=== PATIENT | female | born 1980 | race Caucasian/White ===

== ENCOUNTER → 2022-06-13 13:56 | Outpatient (BNVA) | payer BC, SELFPAY | PROVIDERS: Family Provider Obstetrics & Gynecology; PCP Obstetrics & Gynecology; Visit Provider Obstetrics & Gynecology | DX: Z34.90 Encounter for supervision of normal pregnancy, unspecified, unspecified trimester (principal) | CPT/HCPCS: 80307; 82950; 84315; 84443; 85025; 86592; 86762; 86803; 86850; 86900; 87077; 87086; 87184; 87340; 87491; 87591; 87624; 87661; 87806 ==

== ENCOUNTER 2022-09-06 12:11 | Outpatient (CLI) | payer BC, SELFPAY ==
[2022-09-06 14:13] LABS: Glucose Tolerance 1 Hour Gest 87 mg/dL
== END 2022-09-06 12:12 | disposition home or self-care (01) ==
PROVIDERS: PCP Registered Nurse; Visit Provider Obstetrics & Gynecology
DX: O09.899 Supervision of other high risk pregnancies, unspecified trimester (principal)
CPT/HCPCS: 36415; 82950; 84315

== ENCOUNTER 2022-10-17 16:08 | Outpatient (CLI) | payer BC, SELFPAY ==
[2022-10-17 16:31] LABS: Basophils # 0.1 10^3/uL (0.0-0.1); Basophils % 0.5 %; Eosinophils # 0.3 10^3/uL (0.0-0.8); Eosinophils % 2.1 %; Hematocrit 35.9 % (37.0-47.0); Hemoglobin 11.3 g/dL (11.5-15.3); Lymphocytes # 3.1 10^3/uL (0.8-4.8); Lymphocytes % 23.3 %; Mean Corpuscular HGB Conc 31.5 g/dL (30.0-36.0); Mean Corpuscular Hemoglobin 26.9 pg (28.0-34.0); Mean Corpuscular Volume 85.5 fl (81-99); Mean Platelet Volume 13.7 fL (7.4-10.4); Monocytes # 0.8 10^3/uL (0.2-0.9); Monocytes % 5.7 %; Neutrophils # 8.88 10^3/uL (1.8-7.7); Neutrophils % 67.4 %; Nucleated Red Blood Cells % 0 %; Platelet Count 184 10^3/cmm (130-400); Red Cell Distribution Width 14.3 % (12.1-15.1); White Blood Count 13.2 10^3/uL (4.0-10.0)
[2022-10-17 17:09] LABS: Slide Review Slide Review Perform
== END 2022-10-17 16:09 | disposition home or self-care (01) ==
PROVIDERS: PCP Registered Nurse; Visit Provider Obstetrics & Gynecology
DX: O09.899 Supervision of other high risk pregnancies, unspecified trimester (principal)
CPT/HCPCS: 36415; 84315; 85025

== ENCOUNTER → 2022-10-31 14:50 | Outpatient (BNVA) | payer BC, SELFPAY | PROVIDERS: PCP Registered Nurse; Visit Provider Obstetrics & Gynecology | DX: O09.899 Supervision of other high risk pregnancies, unspecified trimester (principal); Z3A.00 Weeks of gestation of pregnancy not specified | CPT/HCPCS: 84315; 87081 ==

== ENCOUNTER 2022-11-07 09:26 | Outpatient (CLI) | payer BC, SELFPAY ==
[2022-11-07] VITALS (9 sets, daily range): BP systolic 135–177; BP diastolic 64–89; PULSE 80–88; RESP 15; BMI 50.4
--- NOTE | 2022-11-07 09:38 | US_ITS ---
WS: [id number] LIMITED OBSTETRICAL ULTRASOUND HISTORY: GROWTH ULTRASOUND COMPARISON: 06/05/2022 and 07/10/2022 Presentation: Vertex. Cervix: Obscured by the head. Placenta: Anterior, no previa or abruption. Grade: 1 HEART: FHR of 144 BPM. measurements: BPD = 9.2 cm = 37w2d; 66 percentile HC = 32.9 cm = 37w3d; 29th percentile AC = 34.7 cm = 38w4d; 92nd percentile FL = 7.3 cm = 37w4d; 57th percentile KAYLI: 11.8 cm EFW: 3384 g; 85th %. AGA by ultrasound: 37w5d MATEO by ultrasound: 11/23/2022 Appropriate growth since the first trimester ultrasound. Abdominal circumference is at the 92nd perce ntile for age. US/ OB limited [id number] IMPRESSION: 1. Single intrauterine gestation of 37 weeks 5 days with an EDC of 11/23/2022. A ppropriate growth since the first trimester ultrasound. 2. Abdominal circumference is at the 92nd percentile for age. 3. Estimated weight at the 85th percentile. Fetus is trending toward lar ge for gestational age.
[2022-11-07 10:52] LABS: Basophils # 0.1 10^3/uL (0.0-0.1); Basophils % 0.6 %; Eosinophils # 0.2 10^3/uL (0.0-0.8); Eosinophils % 1.5 %; Hematocrit 34.4 % (37.0-47.0); Hemoglobin 10.7 g/dL (11.5-15.3); Lymphocytes # 2.3 10^3/uL (0.8-4.8); Lymphocytes % 18.2 %; Mean Corpuscular HGB Conc 31.1 g/dL (30.0-36.0); Mean Corpuscular Hemoglobin 26.2 pg (28.0-34.0); Mean Corpuscular Volume 84.1 fl (81-99); Mean Platelet Volume 13.7 fL (7.4-10.4); Monocytes # 0.6 10^3/uL (0.2-0.9); Monocytes % 4.6 %; Neutrophils # 9.42 10^3/uL (1.8-7.7); Neutrophils % 74.2 %; Nucleated Red Blood Cells % 0 %; Platelet Count 170 10^3/cmm (130-400); Red Blood Count 4.09 10^6/uL (4.1-5.3); White Blood Count 12.7 10^3/uL (4.0-10.0)
[2022-11-07 11:19] LABS: UPRO/UCREAT Ratio 0.08 mg/mg CR; Urine Creatinine 158 mg/dL (28-217); Urine Protein Random 12 mg/dL
[2022-11-07 11:21] LABS: Add Urine Culture? No; Add Urine Microscopic? YES; Bacteria Urine TRACE /hpf; Bilirubin Urine Neg (Negative); Blood Urine Neg (Negative); Glucose Urine UA Norm (Normal); Ketones Urine 1+ (Negative); Leukocyte Esterase Urine Trace (Negative); Mucus Urine 1+ /hpf; Nitrate Urine Negative (Negative); Protein Urine Neg (Negative); RBC Urine RARE /hpf (0-2); Specific Gravity, Urine 1.015 (1.005-1.030); Sperm Urine 1+ /hpf; Urine Appearance Clear (CLEAR); Urine Color Yellow (Yellow); Urobilinogen Urine Neg (Negative); WBC Urine 0-4 /hpf (0-5); pH Urine 7 (5-7)
[2022-11-07 11:28] LABS: Alanine Aminotransferase 14 U/L (0-33); Alkaline Phosphatase 110 U/L (35-105); Anion Gap 15.5 (5-19); Aspartate Amino Transferase 16 U/L (0-32); Blood Urea Nitrogen 8 mg/dL (6-20); Carbon Dioxide 22 mmol/L (22-29); Chloride 105 mmol/L (98-107); Globulin 3.6 g/dL (1.3-4.6); Glomerular Filtration Rate 109.6 mL/min (90-130); Glucose 136 mg/dL (65-115); Osmolality Calculated 288 mOsm/kg (285-295); Potassium 3.5 mmol/L (3.5-5.1); Sodium 139 mmol/L (136-145); Total Bilirubin 0.4 mg/dL (0.15-1.2); Total Protein 6.6 g/dL (6.6-8.7); Uric Acid 5.3 mg/dL (2.4-5.7)
== END 2022-11-07 11:35 | disposition home or self-care (01) ==
LOC: OPOB 09:36 → OBGYN 09:37
PROVIDERS: Absent Provider Obstetrics & Gynecology; PCP Registered Nurse; Visit Provider Obstetrics & Gynecology
DX: O26.899 Other specified pregnancy related conditions, unspecified trimester (principal); Z3A.00 Weeks of gestation of pregnancy not specified
CPT/HCPCS: 36415; 59025; 76815; 80053; 81001; 82570; 84156; 84550; 85025; 99211

== ENCOUNTER 2022-11-11 22:54 | Inpatient (IN) | payer BC, SELFPAY ==
[2022-11-11 22:56] VITALS: RESP 18
[2022-11-11 23:00] VITALS: BP 212/101; PULSE 73
[2022-11-11 23:11] VITALS: BP 176/88; PULSE 75
[2022-11-11 23:19] VITALS: RESP 18
[2022-11-11] MEDS: lactated ringers 1,000 ML 999 ML IV (23:25)
[2022-11-11 23:29] VITALS: BMI 39.8
[2022-11-11 23:33] VITALS: RESP 20
[2022-11-11 23:47] LABS: Add Urine Microscopic? NO; Charge for UA Resulting for Rev
[2022-11-11 23:57] VITALS: BP 168/92; PULSE 88
[2022-11-11 23:58] LABS: Alanine Aminotransferase 14 U/L (0-33); Albumin Level 3.2 g/dL (3.5-5.2); Alkaline Phosphatase 124 U/L (35-105); Anion Gap 17.9 (5-19); Aspartate Amino Transferase 16 U/L (0-32); Blood Urea Nitrogen 11 mg/dL (6-20); Calcium 9.5 mg/dL (8.5-10.5); Carbon Dioxide 19 mmol/L (22-29); Chloride 102 mmol/L (98-107); Globulin 3.8 g/dL (1.3-4.6); Glomerular Filtration Rate 109.6 mL/min (90-130); Glucose 107 mg/dL (65-115); Osmolality Calculated 280 mOsm/kg (285-295); Potassium 3.9 mmol/L (3.5-5.1); Sodium 135 mmol/L (136-145); Total Bilirubin 0.3 mg/dL (0.15-1.2); Uric Acid 4.6 mg/dL (2.4-5.7)
[2022-11-12] VITALS (29 sets, daily range): BP systolic 129–186; BP diastolic 72–90; PULSE 77–112; RESP 15–16; TEMP 36.4–36.8; O2SAT 95–98
[2022-11-12 00:01] LABS: Bilirubin Urine Neg (Negative); Blood Urine Neg (Negative); Glucose Urine UA Norm (Normal); Ketones Urine 1+ (Negative); Leukocyte Esterase Urine Negative (Negative); Nitrate Urine Negative (Negative); Protein Urine Neg (Negative); Specific Gravity, Urine 1.025 (1.005-1.030); Urine Appearance Clear (CLEAR); Urine Color Yellow (Yellow); Urobilinogen Urine Norm (Negative); pH Urine 6 (5-7)
[2022-11-12 00:10] LABS: Urine Creatinine 74 mg/dL (28-217); Urine Protein Random 7 mg/dL
[2022-11-12 00:11] LABS: Basophils # 0.1 10^3/uL (0.0-0.1); Basophils % 0.5 %; Eosinophils # 0.3 10^3/uL (0.0-0.8); Eosinophils % 1.5 %; Hematocrit 35.1 % (37.0-47.0); Lymphocytes # 3.5 10^3/uL (0.8-4.8); Lymphocytes % 20.8 %; Mean Corpuscular HGB Conc 31.3 g/dL (30.0-36.0); Mean Corpuscular Hemoglobin 25.9 pg (28.0-34.0); Mean Corpuscular Volume 82.8 fl (81-99); Mean Platelet Volume 14.4 fL (7.4-10.4); Neutrophils # 11.73 10^3/uL (1.8-7.7); Neutrophils % 70.2 %; Nucleated Red Blood Cells % 0 %; Platelet Count 205 10^3/cmm (130-400); Red Blood Count 4.24 10^6/uL (4.1-5.3); Red Cell Distribution Width 15.3 % (12.1-15.1); White Blood Count 16.7 10^3/uL (4.0-10.0)
[2022-11-12 00:12] LABS: UPRO/UCREAT Ratio 0.09 mg/mg CR
[2022-11-12] MEDS: oxytocin 30 UNIT/500 ML BAG 600 UNIT IV (00:19)
--- NOTE | 2022-11-12 00:37 | PM.OPHPUD ---
Labor & Delivery H&P Update Date of Procedure: November 12, 2022 Date H&P Performed: 10/31/22 H&P update information: I have reviewed H&P completed within last 30 days, I have examined patient prior to procedure and Changes to prior documentation as noted here (fully dialated) Admission Diagnosis:
--- NOTE | 2022-11-12 00:38 | PM.DELIVERY ---
Delivery Note: Date of delivery: November 12, 2022 Pre-delivery diagnoses: Term Post-delivery diagnoses: Term delivered Procedure: Spontaneous vaginal delivery Delivering Physician: Don Goodwin MD Estimated blood loss (mL): 300 Pre-Delivery Course: The patient is a 41yo at 37+6 weeks EGA who has been receiving care from [facility]. She has been experiencing painful uterine contractions for the past 4 hours. The contractions are occurring at 4 minute intervals with approximately 30 second duration. She continues to feel movement between the contractions. She denies vaginal bleeding or rupture of membranes. She had a rapid progression of labor from 1 cm dilation to 10 cm dilation in less than 1 hour. LMP: Unknown MATEO of 11/26/22 based on her 15 week sonogram CC: Onset of labor at term. HPI: Received appropriate care. Daily vitamins since two months prior to conception. labs have all been normal, including negative for HIV. She was found to negative for Group B Strep from screening at 36 weeks. She has gained approximately 10 lbs throughout the . was complicated by chronic hypertension during , morbid obesity. Glucose tolerance screening for gestational diabetes was negative. Delivery: The patient was noted to be complete and pushing, so was placed in the dorsal lithotomy position, prepped and draped in the usual sterile fashion for a vaginal delivery. Pt. Noted to have epidural anesthesia. At 0015 the patient delivered a viable term male weighing 3635 g with scores of 8 and 9 at one and five minutes, respectively. The vertex was delivered spontaneously over intact perineum. The patient was asked to push and the head delivered spontaneously in the EMILY position, over an intact perineum. A nuchal cord was checked and none noted. The anterior shoulder delivered easily and the posterior shoulder followed. The remainder of the infant was easily delivered and the oropharynx and nasopharynx was bulb suctioned. The infant was noted to have spontaneous cry and spontaneous movement of all four extremities. The cord was clamped x 2 and cut and noted to have 2 arteries and one vein. The was passed to the mother's abdomen where nursing personnel were in attendance. The placenta delivered intact spontaneously and the uterus was explored. 20 units of Pitocin was placed in the IV bag to firm the uterus. Examination of the cervix and vaginal vault did not reveal any lacerations. A vaginal pack was then placed. Examination of the perineum showed second-degree laceration. The laceration was repaired with 2-0 Vicryl in the normal fashion in a running non locking fashion to reapproximate the laceration in layers. The vaginal pack was then removed. The patient tolerated this procedure well, and recovered in L&D with her in their LDR room. All sponge and needle counts were correct. 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
--- NOTE | 2022-11-12 03:21 | PC.NURSE ---
Patient reported she was picking up baby out of the crib when this blood pressure was taking.
--- NOTE | 2022-11-12 05:30 | PC.NURSE ---
In other delivery at this time
[2022-11-12] MEDS: docusate sodium 100 mg Capsule PO ×2 (09:14→20:56)
[2022-11-12] MEDS: ibuprofen 800 mg tablet PO ×2 (09:14→20:56)
[2022-11-12 12:38] LABS: Hematocrit 33.1 % (37.0-47.0); Hemoglobin 10.5 g/dL (11.5-15.3); Mean Corpuscular HGB Conc 31.7 g/dL (30.0-36.0); Mean Corpuscular Hemoglobin 26.4 pg (28.0-34.0); Mean Corpuscular Volume 83.2 fl (81-99); Mean Platelet Volume 13.9 fL (7.4-10.4); Platelet Count 180 10^3/cmm (130-400); Red Blood Count 3.98 10^6/uL (4.1-5.3); Red Cell Distribution Width 15.4 % (12.1-15.1)
[2022-11-12] MEDS: benzocaine-menthol 78 gm Canister 1 SPRAY TOPICAL (21:01)
[2022-11-13 04:50] VITALS: BP 127/84; PULSE 82; RESP 16; TEMP 36.8
--- NOTE | 2022-11-13 08:09 | P.DS_ITS ---
Discharge Providers [employer] MACHINE [employer]ED[employer] Date of Admission: 11/11/22 22:54 Date of Discharge: 11/13/22 Attending Provider at Admission: Don Goodwin MD Attending Provider at Discharge: Don Goodwin MD Primary Care Provider: LISA Cardona Diagnoses at Discharge Discharge Diagnosis (1) Term delivered: Status: Acute (2) Chronic hypertension affecting : Status: Acute (3) AMA (advanced maternal age) multigravida 35+: Status: Acute (4) Morbid obesity with BMI of 45.0-49.9, adult: Status: Acute Reason for Visit Reason for Visit: CONTRACTIONS Hospital Course Hospital Course Mrs. Weber 41-year-old female with estimated gestational age at 37 weeks came to labor and delivery in active labor. Initially to be 1 cm and dilation 15 minutes later she was fully dilated and had a spontaneous vaginal delivery of a male infant without complications with a birthweight of 3635 g, Apgars 8/9. observation was uneventful, relating without difficulty, tolerating diet well. She is afebrile and hemodynamically stable day 1. She was counseled regarding pelvic rest for 6 weeks (no sex, no tampons, no vaginal douches). Return to the emergency room if any fever, increased bleeding or pain. Information Peripartum Data: Delivery Method: Vaginal Physical Exam Narrative: GA; alert and oriented x 3 HEENT: normal Breasts: engorged Nipples - skin intact Lungs; clear to auscultation Heart: regular rhythm, no murmurs. Abd: Appropriately tender. BS+. Uterine fundus below umbilicus. No Fundal Tenderness. Perineum: normal lochia. Extremities: no edema, no cyanosis, no tenderness. History History History 3 Term 1 1 Miscarriages/Ectopic 0 Living Children 2 Discharge Data Studies Completed and Pending Laboratory Results WBC 18.0 10^3/uL (4.0-10.0) H 11/12/22 12:30 RBC 3.98 10^6/uL (4.1-5.3) L 11/12/22 12:30 Hgb 10.5 g/dL (11.5-15.3) L 11/12/22 12:30 Hct 33.1 % (37.0-47.0) L 11/12/22 12:30 MCV 83.2 fl (81-99) 11/12/22 12:30 MCH 26.4 pg (28.0-34.0) L 11/12/22 12:30 MCHC 31.7 g/dL (30.0-36.0) 11/12/22 12:30 RDW 15.4 % (12.1-15.1) H 11/12/22 12:30 Plt Count 180 10^3/cmm (130-400) 11/12/22 12:30 MPV 13.9 fL (7.4-10.4) H 11/12/22 12:30 Neut % (Auto) 70.2 % 11/11/22 23:15 Lymph % (Auto) 20.8 % 11/11/22 23:15 [place] % (Auto) 6.0 % 11/11/22 23:15 Eos % (Auto) 1.5 % 11/11/22 23:15 Baso % (Auto) 0.5 % 11/11/22 23:15 Neut # (Auto) 11.73 10^3/uL (1.8-7.7) H 11/11/22 23:15 Lymph # (Auto) 3.5 10^3/uL (0.8-4.8) 11/11/22 23:15 [place] # (Auto) 1.0 10^3/uL (0.2-0.9) H 11/11/22 23:15 Eos # (Auto) 0.3 10^3/uL (0.0-0.8) 11/11/22 23:15 Baso # (Auto) 0.1 10^3/uL (0.0-0.1) 11/11/22 23:15 Nucleated RBC % (auto) 0 % 11/11/22 23:15 Nucleated RBCs # 0.0 /100WBC 11/11/22 23:15 Sodium 135 mmol/L (136-145) L 11/11/22 23:15 Potassium 3.9 mmol/L (3.5-5.1) 11/11/22 23:15 Chloride 102 mmol/L (98-107) 11/11/22 23:15 Carbon Dioxide 19 mmol/L (22-29) L 11/11/22 23:15 Anion Gap 17.9 (5-19) 11/11/22 23:15 BUN 11 mg/dL (6-20) 11/11/22 23:15 Creatinine 0.6 mg/dL (0.5-0.9) 11/11/22 23:15 GFR Calculation 109.6 mL/min (90-130) 11/11/22 23:15 Glucose 107 mg/dL (65-115) 11/11/22 23:15 Calculated Osmolality 280 mOsm/kg (285-295) L 11/11/22 23:15 Uric Acid 4.6 mg/dL (2.4-5.7) 11/11/22 23:15 Calcium 9.5 mg/dL (8.5-10.5) 11/11/22 23:15 Total Bilirubin 0.3 mg/dL (0.15-1.2) 11/11/22 23:15 AST 16 U/L (0-32) 11/11/22 23:15 ALT 14 U/L (0-33) 11/11/22 23:15 Alkaline Phosphatase 124 U/L (35-105) H 11/11/22 23:15 Total Protein 7.0 g/dL (6.6-8.7) 11/11/22 23:15 Albumin 3.2 g/dL (3.5-5.2) L 11/11/22 23:15 Globulin 3.8 g/dL (1.3-4.6) 11/11/22 23:15 Urine Color Yellow (Yellow) 11/11/22 23:15 Urine Appearance Clear (CLEAR) 11/11/22 23:15 Urine pH 6 (5-7) 11/11/22 23:15 Ur Specific [place] 1.025 (1.005-1.030) 11/11/22 23:15 Urine Protein Neg (Negative) 11/11/22 23:15 Urine Glucose (UA) Norm (Normal) 11/11/22 23:15 Urine Ketones 1+ (Negative) H 11/11/22 23:15 Urine Blood Neg (Negative) 11/11/22 23:15 Urine Nitrate Negative (Negative) 11/11/22 23:15 Urine Bilirubin Neg (Negative) 11/11/22 23:15 Urine Urobilinogen Norm mg/dL (Negative) 11/11/22 23:15 Ur Leukocyte Esterase Negative (Negative) 11/11/22 23:15 U Random Total Protein 7 mg/dL 11/11/22 23:15 Urine Creatinine 74 mg/dL (28-217) 11/11/22 23:15 Protein/Creatinin Ratio 0.09 mg/mg CR 11/11/22 23:15 Vitals Last Vital Signs Temp 98.2 F 11/13/22 04:50 Pulse 82 11/13/22 04:50 Resp 16 11/13/22 04:50 BP 127/84 11/13/22 04:50 Pulse Ox 95 11/12/22 16:00 O2 Del Method 11/13/22 04:50 Discharge Plan Discharge Patient Disposition: Home Condition: Stable Prescriptions: New acetaminophen 325 mg capsule 325 mg PO Q4H PRN (Reason: fever or pain) Qty: 60 0RF docusate sodium [Colace] 100 mg capsule 100 mg PO BID Qty: 60 0RF ibuprofen 800 mg tablet 800 mg PO TID PRN (Reason: pain) Qty: 60 0RF ferrous sulfate [Iron (ferrous sulfate)] 325 mg (65 mg iron) tablet 325 mg PO BID Qty: 60 0RF Continued aspirin 81 mg tablet,delayed release (DR/EC) 81 mg PO DAILY Discharge Orders: Discharge Order (Routine); Ordered 11/13/22 Ordered By: Don Goodwin Referrals: Don Goodwin MD [Physician] - 6 Weeks Discharge Diet: Advance as tolerated Discharge Activity: Limit activity as instructed Patient Instructions: Opioid Safety, Vaginal Delivery (GEN), Your [place]'s Appearance (GEN), Caring for Your Baby (GEN), Bleeding (GEN) Activity Restrictions/Additional Instructions: 1. Please call [facility] on next working day to make your post appointment in 6 weeks. 2. Please stay home until you come back to the clinic on first post-operative check up. 3. Please follow instructions on your medications CAREFULLY. 4. If you have abdominal incision, do not cover it unless dressing is necessary because of drainage. OK to shower, but avoid bath. Leave steri-strips until they fall off. If they are still on one week after surgery, you may remove them. 5. If you had vaginal surgery or vaginal repair, Dr. Goodwin may instruct you to take SITZ bath. 6. Yellow, blood tinged odorous vaginal discharge is usually normal after hysterectomy or vaginal surgeries. 7. No sexual intercourse, tampons, or douches until you are completely released from the post-operative care. 8. Avoid constipation by eating right and maybe using some Metamucil or Milk of Magnesia. 9. All prescription refills are given during the working hours. Please do no wait till it runs out. Call the clinic at [phone] before your medication runs out. The clinic will get in touch with your doctor to prescribe medications if necessary. 10. Please remain within 40 mile radius from our hospital because emergencies do happen now and then during the post-operative period. 11. If you have stairs at home, take one step at a time slowly and minimize the number of trips. It helps to stay in one floor for the next few days. No lifting except what you can lift by one hand until you are released from the post-operative care. 12. Driving is discouraged until you are well healed. It may be 3-4 weeks before you feel strong enough to drive. You should be able to turn and look through the rear window without pain and you should be able to push the brake pedal very hard without pain before you drive. No fast rules, but SAFETY should be your primary concern. DO NOT drive if you are on sedating medications such as narcotics. 13. Call the clinic (during working hours) to make urgent appointment or go to the Emergency room, if any of the following occurs: i. Vaginal bleeding becomes heavy, more than a period. ii. Incision becomes red and sore, or drains pus. iii. Your temperature is over 100.4 or you have chill. iv. IV site becomes red and swollen (a little ``knot?? is usually OK) v. Persistent nausea and vomiting vi. Persistent constipation or diarrhea vii. Rash or allergic reaction to medications. 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
[2022-11-13] MEDS: prenatal vitamin Capsule 1 CAP PO (09:44)
[2022-11-13] MEDS: ibuprofen 800 mg tablet PO (09:44)
[2022-11-13] MEDS: docusate sodium 100 mg Capsule PO (09:44)
[2022-11-13 10:00] VITALS: BP 141/86; PULSE 78; RESP 18; TEMP 36.8; O2SAT 98
== END 2022-11-13 13:54 | disposition home or self-care (01) | DRG 807 ==
LOC: OBGYN 11-12 07:54 → OPOB 11-18 15:12
PROVIDERS: Admitting Provider Obstetrics & Gynecology; PCP Registered Nurse; Visit Provider Obstetrics & Gynecology
DX: O10.02 Pre-existing essential hypertension complicating childbirth (principal); Z37.0 Single live birth; O99.214 Obesity complicating childbirth; E66.01 Morbid (severe) obesity due to excess calories; O62.3 Precipitate labor; O70.1 Second degree perineal laceration during delivery; Z3A.37 37 weeks gestation of pregnancy; Z79.82 Long term (current) use of aspirin
CPT/HCPCS: 36415; 59025; 59409; 80053; 81003; 82570; 83986; 84156; 84550; 85025; 85027; 99211; J2590; J7120

== ENCOUNTER 2022-11-28 17:08 | Outpatient (CLI) | payer BC, SELFPAY ==
[2022-11-28] VITALS (17 sets, daily range): BP systolic 126–149; BP diastolic 66–82; PULSE 67–83; O2SAT 93–100; BMI 46.5
[2022-11-28 17:58] LABS: Basophils # 0.1 10^3/uL (0.0-0.1); Eosinophils # 0.4 10^3/uL (0.0-0.8); Eosinophils % 4.9 %; Hematocrit 38.6 % (37.0-47.0); Hemoglobin 11.6 g/dL (11.5-15.3); Mean Corpuscular HGB Conc 30.1 g/dL (30.0-36.0); Mean Corpuscular Hemoglobin 25.6 pg (28.0-34.0); Mean Corpuscular Volume 85.2 fl (81-99); Mean Platelet Volume 12.5 fL (7.4-10.4); Monocytes # 0.5 10^3/uL (0.2-0.9); Monocytes % 5.3 %; Neutrophils % 53.5 %; Nucleated Red Blood Cells % 0 %; Platelet Count 216 10^3/cmm (130-400); Red Blood Count 4.53 10^6/uL (4.1-5.3); Red Cell Distribution Width 15.2 % (12.1-15.1); White Blood Count 8.6 10^3/uL (4.0-10.0)
[2022-11-28 17:59] LABS: UPRO/UCREAT Ratio 0.09 mg/mg CR; Urine Creatinine 193 mg/dL (28-217); Urine Protein Random 17 mg/dL
[2022-11-28 18:10] LABS: Bilirubin Urine Neg (Negative); Blood Urine 3+ (Negative); Glucose Urine UA Norm (Normal); Ketones Urine Negative (Negative); Nitrate Urine Negative (Negative); Protein Urine Neg (Negative); Specific Gravity, Urine 1.015 (1.005-1.030); Urine Appearance Clear (CLEAR); Urine Color Yellow (Yellow); pH Urine 7 (5-7)
[2022-11-28 18:11] LABS: Add Urine Microscopic? YES; Leukocyte Esterase Urine Trace (Negative); Urobilinogen Urine 1 mg/dL (Negative)
[2022-11-28 18:12] LABS: Mucus Urine 2+ /hpf; RBC Urine 40-50 /hpf (0-2); Squamous Epithelial Cell Urine 0-4 /hpf (0-5)
[2022-11-28 18:14] LABS: Add Urine Culture? No
[2022-11-28 18:30] LABS: Alanine Aminotransferase 14 U/L (0-33); Albumin Level 3.6 g/dL (3.5-5.2); Alkaline Phosphatase 79 U/L (35-105); Anion Gap 13.8 (5-19); Aspartate Amino Transferase 14 U/L (0-32); Blood Urea Nitrogen 19 mg/dL (6-20); Calcium 9.3 mg/dL (8.5-10.5); Carbon Dioxide 28 mmol/L (22-29); Chloride 106 mmol/L (98-107); Globulin 3.8 g/dL (1.3-4.6); Glomerular Filtration Rate 78.7 mL/min (90-130); Glucose 91 mg/dL (65-115); Osmolality Calculated 300 mOsm/kg (285-295); Potassium 3.8 mmol/L (3.5-5.1); Sodium 144 mmol/L (136-145); Total Bilirubin 0.4 mg/dL (0.15-1.2); Total Protein 7.4 g/dL (6.6-8.7); Uric Acid 6.8 mg/dL (2.4-5.7)
== END 2022-11-28 18:54 | disposition home or self-care (01) ==
LOC: OPOB 17:10 → OBGYN 17:12 → OPOB 17:18 → OBGYN 17:19
PROVIDERS: PCP Registered Nurse; Visit Provider Obstetrics & Gynecology
DX: O26.899 Other specified pregnancy related conditions, unspecified trimester (principal); Z3A.00 Weeks of gestation of pregnancy not specified
CPT/HCPCS: 36415; 80053; 81001; 82570; 84156; 84315; 84550; 85025; 99211

== ENCOUNTER → 2022-12-09 16:12 | Outpatient (BNVA) | payer BC, SELFPAY | PROVIDERS: PCP Registered Nurse; Visit Provider Obstetrics & Gynecology | DX: O10.919 Unspecified pre-existing hypertension complicating pregnancy, unspecified trimester (principal); Z3A.00 Weeks of gestation of pregnancy not specified | CPT/HCPCS: 81000 ==